=== PATIENT | female | born 1985 | race Caucasian/White ===

== ENCOUNTER 2018-02-16 13:44 | Emergency (ER) | payer OTHER ==
[~2018-02-16] VITALS: Ht 177.8 cm; Wt 91.6 kg
[~2018-02-16 13:44] MED LIST: BACTRIM DS TAB1 EACH PO; BENTYL10 M1 PO; BUPROPION HCL150 M4 PO; CELEXA40 M1 PO; CLONAZEPAM1 M2 PO; CORTEF20 M1 PO; CYANOCOBAL1000 MCG/2 IM; CYCLOBENZAPRINE5 M2 PO; DILAUDID2 M1 PO; FENTANYL1 EAC5 TOP; FLUDROCORTISON0.1 M1 PO; HYDROCORTISONE20 M1 PO; LOPRESSOR50 M1 PO; MAALOX MAXIMUM355 ML PO; MIDODRINE HCL5 M1 PO; OXYCODONE HCL5 M1 PO; PANTOPRAZOLE SO20 M1 PO; PEPCID20 M1 PO; POTASSIUM CHLO20 ME2 PO; REGLAN10 M1 PO; ZOFRAN ODT4 M1 SL; ZOFRAN4 M2 PO
--- NOTE | 2018-02-16 14:45 | RADIOLOGY REPORT ---
EXAMINATION: XR KNEE, RIGHT CLINICAL INFORMATION: Pain, fracture COMPARISON: None TECHNIQUE: Four views of the right knee. FINDINGS: Bones and soft tissues are normal. No acute fracture or joint effusion. Alignment is anatomic. No abnormal soft tissue calcification. IMPRESSION: No acute fracture or dislocation of the right knee.
--- NOTE | 2018-02-16 16:08 | ED UPPER/LOWER EXTREMITY COMPL ---
History of Present Illness General Chief Complaint: Lower Extremity Problems Stated Complaint: R KNEE PAIN Source: patient, old records Exam Limitations: no limitations Vital Signs & Intake/Output Vital Signs & Intake/Output Vital Signs Date Time Temp Pulse Resp B/P B/P Pulse O2 O2 Flow FiO2 Mean Ox Delivery Rate 02/16 1654 68 18 128/58 99 Room Air 02/16 1400 99.0 59 20 114/79 97 Room Air Allergies Coded Allergies: metronidazole (Severe, ANAPHYLAXIS 03/30/16) morphine (Severe, ITCHING 07/17/17) ciprofloxacin (From CIPRO) (UNKNOWN 07/17/17) dexamethasone (KANDIS DANLOS SYNDROME - CONTRAINDICATION 03/30/16) ketorolac (From TORADOL) (UNKNOWN 07/17/17) levofloxacin (From LEVAQUIN) (UNKNOWN 07/17/17) Reconcile Medications Bupropion HCl (Bupropion HCl Sr) 150 MG TABLET.ER 1 TAB PO BID MENTAL HEALTH (Reported) Citalopram Hydrobromide (Celexa) 40 MG TABLET 1 TAB PO DAILY MENTAL HEALTH ( Reported) Cyanocobalamin (Vitamin B-12) (Cyanocobalamin Injection) 1,000 MCG/ML VIAL 1 ML IM Q30D VITAMIN SUPPORT (Reported) Dicyclomine Hydrochloride (Bentyl) 10 MG CAPSULE 1 CAP PO TID PRN abdominal cramps Famotidine (Pepcid) 20 MG TABLET 1 TAB PO BID gastritis Fludrocortisone Acetate 0.1 MG TABLET 1 TAB PO DAILY ADRENAL INSUFF (Reported ) Hydrocortisone 20 MG TABLET 1 TAB PO BID ADRENAL INSUFFICIENCY Mag Hydrox/Al Hydrox/Simeth (Maalox Maximum Strength Susp) 400 MG-400 MG-40 MG/5 ML ORAL.SUSP 10-15 ML PO Q4P PRN abdominal pain Metoprolol Tartrate (Lopressor) 50 MG TABLET 1.5 TAB PO BID HEART (Reported) Midodrine HCl 5 MG TABLET 1 TAB PO TID BP (Reported) Ondansetron (Zofran Odt) 4 MG TAB.RAPDIS 1 TAB SL TID PRN NAUSEA Ondansetron (Zofran Odt) 4 MG TAB.RAPDIS 1 TAB SL TID PRN nausea Oxycodone HCl 5 MG TABLET 1-2 TAB PO Q6P PRN severe pain Oxycodone HCl/Acetaminophen (Percocet 5-325 MG Tablet) 5 MG-325 MG TABLET 1 TAB PO BID PRN pain Pantoprazole Sodium 20 MG TABLET. 1 TAB PO DAILY ACID REFLUX (Reported) Sulfamethoxazole/Trimethoprim (Bactrim Ds Tablet) 800 MG-160 MG TABLET 1 TAB PO BID PYELO Triage Note: PT STATES SHE THINKS SHE DISLOCATED HER RIGHT KNEE YESTERDAY WHILE STANDING. STATES SHE HEARD THE POP AND FELT PAIN GOING DOWN LEG.STATES HER ADDISONS SEEMS TO BE ACTING UP Triage Nurses Notes Reviewed? yes Onset: Abrupt : No Patient currently breastfeeds: No HPI: 32-year-old female with history of Kandis danos syndrome, addisons presents to the ER complaining of right anterior knee pain. She states she was standing yesterday when she believes she dislocated her kneecap. She states this is happened before there was no fall or trauma she denies any other injury. She states she was taking oxycodone at home without improvement and feels like her leg will give out secondary to her pain. No swelling numbness or tingling pain is worse with weightbearing and better with rest Past History Travel History Traveled to [place] past 21 day No Medical History Any Pertinent Medical History? 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 No Review of Systems Review of Systems Constitutional: Reports: see HPI. Comments Review of systems: See HPI, All other systems negative. Constitutional, no chills no fever HEENT: no sore throat no congestion Cardiovascular: No chest pain Skin: no rashes, no change in skin Respiratory: No dyspnea no cough GI: No nausea no vomiting Muscle skeletal: See HPI Neurologic: , no headache Heme/endocrine: No bruising Physical Exam Physical Exam General Appearance: well developed/nourished, alert, awake Comments: Well-developed well-nourished patient in no apparent distress. HEENT: Atraumatic, extraocular motion intact Neck: Supple, FROM Back: FROM Respiratory: No respiratory distress. Patient speaking in full complete sentences. Upper Extremities: full range of motion Hip/Pelvis: Atraumatic/Stable. FROM. Knee: Atraumatic/stable. lROM secondary to pain. No joint swelling, no ecchymosis, no effusion. No laxity. Negative keith/anterior drawer test. No pain with ROM Leg: Atraumatic. Nontender. No edema, 5 out of 5 strength in the lower extremity, normal dorsiflexion of great toe bilaterally, gross sensation is intact, patellar tendon reflex 2+ bilaterally. Ankle/Foot: Atraumatic/stable. Skin intact. FROM. No swelling, no effusion. No laxity on exam Pulses: Normal/equal DP/PT pulses bilaterally. Brisk cap refill Neuro: awake, alert, and oriented to person, place and time. There were no obvious focal neurologic abnormalities. Skin: Warm & dry;No appreciable rash on exposed skin Psych: Mood affect normal, normal memory normal judgment. Progress Differential Diagnosis: contusion, dislocation, fracture, sprain, tendon injury Plan of Care: Orders Procedure Date/time Status Durable Medical Equipment 02/16 162 Active I discussed with the patient at length all of their results. I had an extensive conversation regarding need for close follow up with their primary care physician this week as well as return precautions. I answered all of their questions, they feel comfortable with the plan and follow-up care. I discussed with the patient/family the medications that they will receive. I gave them signs and symptoms that could indicate an adverse reaction. I have advised them to limit their activities until they can see how they respond to the medication. Diagnostic Imaging: Viewed by Me: Radiology Read. Discussed w/RAD: Radiology Read. Radiology Impression: PATIENT: SHAI HARTMANN PRESENT AGE: 32 PATIENT ACCOUNT NO: [id number] : 87 LOCATION: [facility] ORDERING PHYSICIAN: Taran COLÓN SERVICE DATE: 02/16/18-0593 EXAM TYPE: RAD - XRY-KNEE COMPLETE RIGHT EXAMINATION: XR KNEE, RIGHT CLINICAL INFORMATION: Pain, fracture COMPARISON: None TECHNIQUE: Four views of the right knee. FINDINGS: Bones and soft tissues are normal. No acute fracture or joint effusion. Alignment is anatomic. No abnormal soft tissue calcification. IMPRESSION: No acute fracture or dislocation of the right knee. DICTATED BY: Gary Duncan MD DATE/TIME DICTATED:02/16/181439 MANAGER VOICE:WENDY DATE/TIME TRANSCRIBED:02/16/181439 CONFIDENTIAL, DO NOT COPY WITHOUT APPROPRIATE AUTHORIZATION. <Electronically signed in Other Vendor System> SIGNED BY: Gary Duncan MD 02/16/181444 Departure Departure Time of Disposition: 0 Disposition: HOME OR SELF CARE Condition: Stable Clinical Impression Primary Impression: Knee sprain Referrals: Michael WAGNER,Latasha Smith APRN,Danielle Long (PCP/Family) Additional Instructions: Rest ice leg immobilizer at all times. Follow-up with orthopedist Dr. Rodriguez. Percocet for breakthrough pain use caution as this is a narcotic and highly addictive no driving or drinking alcohol while taking.- Departure Forms: Customer Survey General Discharge Information Prescriptions: Current Visit Scripts Oxycodone HCl/Acetaminophen (Percocet 5-325 MG Tablet) 1 TAB PO BID PRN pain #10 TAB
[2018-02-16] MEDS ORDERED: PERCOCET 5-3251 EACH PO (16:24)
[2018-02-16 16:54] VITALS: BP 128/58
== END 2018-02-16 16:55 ==
LOC: ERH 13:44
DX: S83.91XA Sprain of unspecified site of right knee, initial encounter (principal); X58.XXXA Exposure to other specified factors, initial encounter; Y92.9 Unspecified place or not applicable; Y93.9 Activity, unspecified
CPT/HCPCS: 73562-RT; 96372; J1200

== ENCOUNTER 2018-06-12 17:28 | Inpatient (IN) | payer OTHER ==
[~2018-06-12] VITALS: Ht 177.8 cm; Wt 99.1 kg
[~2018-06-12 17:28] MED LIST changes: +PERCOCET 5-3251 EACH PO; +SKELAXIN800 M1 PO
[2018-06-12] MEDS ORDERED: WELLBUTRIN XL300 M2 PO (17:58)
[2018-06-12] MEDS ORDERED: PANTOPRAZOLE SO40 M1 PO (17:59)
[2018-06-12] MEDS ORDERED: DICYCLOMINE HCL10 M1 PO (17:59)
[2018-06-12] MEDS ORDERED: CORTEF20 M1 PO (18:01)
[2018-06-12] MEDS ORDERED: LOPRESSOR100 M1 PO (18:02)
[2018-06-12] MEDS ORDERED: CORTEF10 M1 PO (18:02)
[2018-06-12] MEDS ORDERED: REGLAN10 M1 PO (18:03)
--- NOTE | 2018-06-12 18:03 | ED GENERAL ADULT ---
See Addendum History of Present Illness General Chief Complaint: General Adult Stated Complaint: ?PNEMONIA Source: patient Exam Limitations: no limitations Vital Signs & Intake/Output Vital Signs & Intake/Output Vital Signs Date Time Temp Pulse Resp B/P B/P Pulse O2 O2 Flow FiO2 Mean Ox Delivery Rate 06/12 1738 99.3 80 22 134/79 97 Room Air Allergies Coded Allergies: metronidazole (Severe, ANAPHYLAXIS 03/30/16) morphine (Severe, ITCHING 07/17/17) ciprofloxacin (From CIPRO) (PER PT CANT HAVE DUE TO CONNECTIVE TISSUE DISORDER 06/12/18) dexamethasone (SLADE DANLOS SYNDROME - CONTRAINDICATION 03/30/16) ketorolac (From TORADOL) (UNKNOWN 07/17/17) levofloxacin (From LEVAQUIN) (PER PT CANT HAVE DUE TO CONNECTIVE TISSUE DISORDER 06/12/18) Reconcile Medications Bupropion HCl (Wellbutrin XL) 300 MG TAB.ER.24H 1 TAB PO QAM DEPRESSION ( Reported) Clonazepam 1 MG TABLET 1 TAB PO TIDPRN PRN ANXIETY (Reported) Cyanocobalamin (Vitamin B-12) (Cyanocobalamin Injection) 1,000 MCG/ML VIAL 1 ML IM Q30D VITAMIN SUPPORT (Reported) Dicyclomine HCl 10 MG CAPSULE 1 CAP PO TID PRN ABD CRAMPS (Reported) Etonogestrel (Nexplanon) 68 MG IMPLANT RIGHT ARM - CONTROL (Reported) Fludrocortisone Acetate 0.1 MG TABLET 1 TAB PO DAILY ADRENAL INSUFF (Reported ) Fluticasone Propionate 50 MCG/ACTUATION SPRAY.SUSP 2 SPRAY NASB DAILY ALLERGIES (Reported) Hydrocortisone (Cortef) 20 MG TABLET 1 TAB PO QAM ADRENAL INSUFF (Reported) Hydrocortisone (Cortef) 10 MG TABLET 1 TAB PO 1200 ADRENAL INSUFF (Reported) Metoclopramide HCl (Reglan) 10 MG TABLET 1 TAB PO TID NAUSEA (Reported) 30 minutes before meals and bedtime Metoprolol Tartrate (Lopressor) 100 MG TABLET 1 TAB PO BID HEART (Reported) Midodrine HCl 5 MG TABLET 1 TAB PO TID BP (Reported) Oxycodone HCl 15 MG TABLET 1 TAB PO 4XDP PRN PAIN (Reported) Pantoprazole Sodium 40 MG TABLET.DR 1 TAB PO DAILY GI (Reported) Triage Note: 33F HAD CXR DONE TODAY WHICH SHOWED RUL PNA, WITH 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 HAS ADDISONS DISEASE AND IS ON CHRONIC STEROIDS. WAS SENT IN FOR IV ANTIBIOTICS AND STEROIDS. TAKING ADVIL Triage Nurses Notes Reviewed? yes Onset: Gradual Duration: day(s): Timing: recent history : No Patient currently breastfeeds: No HPI: 33 year old female presents to the Emergency Department after a chest xray showed PNA. Past medical history of postprandial syndrome and Florence's disease. She also has a past medical history of polycystic ovary disease. Past History Travel History Traveled to [place] past 21 day No Medical History Any Pertinent Medical History? 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 No Review of Systems Review of Systems Constitutional: Reports: see HPI. Denies: diaphoresis, fever. EENTM: Reports: no symptoms. Denies: double vision, visual changes. Respiratory: Reports: see HPI, cough, short of breath. Cardiovascular: Reports: see HPI, chest pain. GI: Reports: no symptoms. Genitourinary: Reports: no symptoms. Musculoskeletal: Reports: no symptoms. Skin: Reports: no symptoms. Neurological/Psychological: Reports: no symptoms. Hematologic/Endocrine: Reports: no symptoms. Immunologic/Allergic: Reports: no symptoms. All Other Systems: Reviewed and Negative Physical Exam Physical Exam General Appearance: well developed/nourished, alert, awake, anxious, mild distress Head: atraumatic, normal appearance Eyes: Bilateral: normal appearance, PERRL, EOMI. Ears, Nose, Throat: normal pharynx, normal ENT inspection Neck: normal inspection, supple, full range of motion Respiratory: normal breath sounds, chest non-tender, no respiratory distress Cardiovascular: regular rate/rhythm Peripheral Pulses: 4+ radial (R), 4+ radial (L) Gastrointestinal: soft, non-tender Back: normal range of motion Extremities: no edema Neurologic/Psych: no motor/sensory deficits, awake, alert, oriented x 3 Skin: intact, normal color, warm/dry Core Measures ACS in differential dx? No CVA/TIA Diagnosis: No Sepsis Present: No Sepsis Focused Exam Completed? No Progress Differential Diagnoses I considered the following diagnoses in my evaluation of the patient: [Pneumonia , sepsis, pulmonary embolism,] Plan of Care: Orders Procedure Date/time Status CTA CHEST-PULMONARY EMBOLISM 06/12 2048 Active TROPONIN LEVEL 06/12 184 Complete D-DIMER 06/12 1819 Complete EKG 06/12 1819 Active LACTIC ACID 06/12 1740 Complete HUMAN BETA HCG SCREEN 06/12 1740 Complete COMPREHENSIVE METABOLIC PANEL 06/12 1740 Complete CBC WITHOUT DIFFERENTIAL 06/12 1740 Complete Current Medications Sig/Silas Start time Last Medication Dose Stop Time Status Admin Sodium Chloride 1,000 ML BOLUS ONE 06/12 1945 AC 06/12 (Normal Saline 0.9%) 06/12 Laboratory Tests 06/12/182039: Lactic Acid Cancelled 06/12/181847: Anion Gap 9, Estimated GFR > 60, BUN/Creatinine Ratio 22.0, Glucose 87, Lactic Acid 0.6 L, Calcium 8.4, Total Bilirubin < 0.1 L, AST 14, ALT 23, Alkaline Phosphatase 57, Troponin I < 0.01, Total Protein 5.8 L, Albumin 3.1 L, Globulin 2.7, Albumin/Globulin Ratio 1.1, Total Beta HCG NEGATIVE, D-Dimer High Sensitivty 335 H, CBC w Diff NO MAN DIFF REQ, RBC 3.75 L, MCV 85.7, MCH 28.6, MCHC 33.4, RDW 13.9, MPV 7.5, Gran % 70.8, Lymphocytes % 21.0, Monocytes % 7.1, Eosinophils % 0.9, Basophils % 0.2, Absolute Granulocytes 9.6 H, Absolute Lymphocytes 2.9, Absolute Monocytes 1.0 H, Absolute Eosinophils 0.1, Absolute Basophils 0 06/12/181818: Troponin I Cancelled Initial ED EKG: normal sinus rhythm, PENDING Departure Departure Disposition: STILL A PATIENT Condition: Stable Clinical Impression Primary Impression: Pneumonia Referrals: Unknown (PCP/Family) Departure Forms: Customer Survey General Discharge Information Critical Care Note Critical Care Note Critical Care Time: non-applicable Departure Forms: Customer Survey General Discharge Information Critical Care Note Critical Care Note Critical Care Time: non-applicable
[2018-06-12] MEDS ORDERED: OXYCODONE HCL15 M1 PO (18:04)
[2018-06-12] MEDS ORDERED: NEXPLANON68 M1 (18:04)
[2018-06-12] MEDS ORDERED: CLONAZEPAM1 M2 PO (18:04)
[2018-06-12] MEDS ORDERED: FLUTICASONE PRO16 GM NASB (18:05)
[2018-06-12 19:03] LABS: ABSOLUTE BASOPHIL COUNT 0 /CUMM (0.0-0.2); ABSOLUTE EOSINOPHIL COUNT 0.1 /CUMM (0.0-0.7); ABSOLUTE GRANULOCYTE CT 9.6 /CUMM (1.4-6.5); ABSOLUTE LYMPH COUNT 2.9 /CUMM (1.2-3.4); BASOPHIL % 0.2 % (0.0-2.0); EOSINOPHIL % 0.9 % (0-5); HEMATOCRIT 32.1 % (37-47); MEAN CORPUSCULAR HGB 28.6 PG (27.0-31.0); MEAN CORPUSCULAR HGB CONC 33.4 G/DL (33.0-37.0); MEAN CORPUSCULAR VOLUME 85.7 FL (81.0-99.0); MEAN PLATELET VOLUME 7.5 FL (7.4-10.4); PLATELET COUNT 423 /CUMM (130-400); RBC DISTRIBUTION WIDTH 13.9 % (11.5-14.5); RED BLOOD CELL CT 3.75 /CUMM (4.20-5.40); WHITE BLOOD CELL COUNT 13.6 /CUMM (4.8-10.8)
[2018-06-12 19:09] LABS: GRANULOCYTE % 70.8 % (42.2-75.2)
--- NOTE | 2018-06-12 20:03 | RADIOLOGY REPORT ---
EXAMINATION: CHEST 2 VIEWS CLINICAL INFORMATION: Cough, fever. COMPARISON: None. TECHNIQUE: PA and lateral views of the chest were obtained. FINDINGS: The cardiac silhouette is not enlarged. The mediastinal and hilar contours are unremarkable. There are neither pleural effusions nor pneumothoraces. There is multifocal airspace disease within the right upper lobe and left midlung. The osseous structures are unremarkable. IMPRESSION: Multifocal airspace disease concerning for pneumonia. Recommendation is for a followup chest series to be obtained following treatment and/or resolution of symptoms to assure resolution of this appearance.
--- NOTE | 2018-06-12 21:22 | History & Physical ---
Johnny Calixto 06/12/182120: General Information and HPI MD Statement: I have seen and personally examined SHAI HARTMANN and documented this H&P. The patient is a 33 year old F who presented with a patient stated chief complaint of [nonproductive cough for 5 days]. Source of Information: patient, family Exam Limitations: no limitations History of Present Illness: The patient started having difficulty swallowing 5 days ago, accompanied by sore throat and generalized body pain, associated with short. Her boyfriend was sick with strep throat 2 days ago. Also 2 days ago, the patient went to urgent care because she started getting fevers up to 103. Chest x-ray which was done showed evidence of pneumonia. Patient was given doxycycline but continued to worsen. She continues to take Motrin for her fever. This morning she discussed with her PCP where she is advised to come to [facility] for further evaluation and management including IV antibiotics. Allergies/Medications Allergies: Coded Allergies: metronidazole (Severe, ANAPHYLAXIS 03/30/16) morphine (Severe, ITCHING 07/17/17) ciprofloxacin (From CIPRO) (PER PT CANT HAVE DUE TO CONNECTIVE TISSUE DISORDER 06/12/18) dexamethasone (KANDIS DANLOS SYNDROME - CONTRAINDICATION 03/30/16) ketorolac (From TORADOL) (UNKNOWN 07/17/17) levofloxacin (From LEVAQUIN) (PER PT CANT HAVE DUE TO CONNECTIVE TISSUE DISORDER 06/12/18) Compliance With Home Meds: GOOD Past History Travel History Traveled to [place] past 21 day No Medical History Neurological: NONE EENT: NONE Cardiovascular: AFIB, POTS TACHYCARDIA Respiratory: NONE Gastrointestinal: irritable bowel syndrome, upper GI bleed, GASTROPARESIS Hepatic: NONE Renal: POLYNEPHRITIS Musculoskeletal: KANDIS DANLOS SYNDROME HIP DYSPLASIA NECK FUSION HERNIATED DISKS Psychiatric: anxiety, depression Endocrine: ADDISIONS SYNDROME Blood Disorders: 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 Home Who Do You Live With? parent Primary Language: Palestinian Smoking Status: Unknown If Ever Smoked Living Will? no Review of Systems Review of Systems Constitutional: Reports: chills, diaphoresis, malaise. Denies: weakness, unexplained weight loss. EENTM: Reports: eye tearing, throat pain, throat swelling, mouth pain. Denies: blurred vision, double vision, visual changes, eye pain, eye drainage, icterus, ear discharge, ear pain, nasal congestion, nasal pain. Cardiovascular: Reports: see HPI. Respiratory: Reports: cough, orthopnea, short of breath. Denies: hemoptysis, sputum production, stridor. GI: Reports: no symptoms. Genitourinary: Reports: no symptoms. Musculoskeletal: Reports: see HPI, back pain, joint pain, muscle pain. Skin: Reports: no symptoms. Neurological/Psychological: Reports: anxiety, depressed, headache. Hematologic/Endocrine: Reports: no symptoms. Exam & Diagnostic Data Last 24 Hrs of Vital Signs/I&O Vital Signs Date Time Temp Pulse Resp B/P B/P Pulse O2 O2 Flow FiO2 Mean Ox Delivery Rate 06/12 2259 98.5 90 18 140/80 95 06/12 2243 97.5 78 18 127/64 95 06/12 1930 Room Air 06/12 1738 99.3 80 22 134/79 97 Room Air Physical Exam General Appearance Alert, Oriented X3, Cooperative, Mild Distress Skin No Rashes, No Breakdown Skin Temp/Moisture Exam: Warm/Dry HEENT Atraumatic, PERRLA, EOMI, membranes moist/pink; no herpetic outbreak; red punctate papilla on tongue Neck Supple, No JVD, No thryomegaly Lymphatic Axillary nl, Cervical nl Cardiovascular Regular Rate, Normal S1, Normal S2, No Murmurs Lungs diffuse wheezes,decreased air movement Abdomen Soft, No Tenderness, No Hepatospenomegaly Neurological Normal Speech, Strength at 5/5 X4 Ext, Normal Tone, Sensation Intact Extremities No Clubbing, No Cyanosis, No Edema Vascular Normal Pulses, Pulses Symmetrical Last 24 Hrs of Labs/Bakari: Laboratory Tests 06/12/182039: Lactic Acid Cancelled 06/12/181847: Anion Gap 9, Estimated GFR > 60, BUN/Creatinine Ratio 22.0, Glucose 87, Lactic Acid 0.6 L, Calcium 8.4, Total Bilirubin < 0.1 L, AST 14, ALT 23, Alkaline Phosphatase 57, Troponin I < 0.01, Total Protein 5.8 L, Albumin 3.1 L, Globulin 2.7, Albumin/Globulin Ratio 1.1, Total Beta HCG NEGATIVE, D-Dimer High Sensitivty 335 H, CBC w Diff NO MAN DIFF REQ, RBC 3.75 L, MCV 85.7, MCH 28.6, MCHC 33.4, RDW 13.9, MPV 7.5, Gran % 70.8, Lymphocytes % 21.0, Monocytes % 7.1, Eosinophils % 0.9, Basophils % 0.2, Absolute Granulocytes 9.6 H, Absolute Lymphocytes 2.9, Absolute Monocytes 1.0 H, Absolute Eosinophils 0.1, Absolute Basophils 0 06/12/181818: Troponin I Cancelled Microbiology 06/12 2141 BLOOD: Blood Culture - COLB 06/12 2140 URINE ROUT: Legionella Antigen - ORD 06/12 2140 URINE ROUT: Streptococcus pneumoniae Antigen (M - ORD 06/12 2140 LOWER RESP: Respiratory Culture - ORD 06/12 2140 LOWER RESP: Gram Stain - ORD 06/12 2140 BLOOD: Blood Culture - COLB Diagnostic Data CXR Results SERVICE DATE: 06/12/18 EXAM TYPE: RAD - XRY-CHEST XRAY, TWO VIEWS IMPRESSION: Multifocal airspace disease concerning for pneumonia. Recommendation is for a followup chest series to be obtained following treatment and/or resolution of symptoms to assure resolution of this appearance. Other Results SERVICE DATE: 06/12/18 EXAM TYPE: CAT - CTA CHEST-PULMONARY EMBOLISM IMPRESSION: No CT evidence for pulmonary embolism. Multifocal airspace disease groundglass opacification likely motor vehicle field representative of pneumonia. Trace bilateral pleural effusions. Nonspecific right paratracheal lymph node. Recommendation is for a followup chest series to be obtained following treatment and/or resolution of symptoms to assure resolution of this appearance. 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 Problem list/plan: Pneumonia Back pain post multiple surgeries Primary adrenal insufficiency department home dose of hydrocortisone -Consider endocrine consult Hypokalemia 3.5 Depression DVT prophylaxis: Lovenox Heart healthy diet Patient is full code As Ranked By This Provider Problem List: 1. Pneumonia 2. Kandis-Danlos syndrome 3. Adrenal insufficiency 4. Low back strain Core Measures/Misc (08/10) Acute Coronary Syndrome ACS Diagnosis: No Congestive Heart Failure Congestive Heart Failure Diagnosis No Cerebrovascular Accident CVA/TIA Diagnosis: No VTE (View Protocol) VTE Risk Factors Acute Medical Illness No Mechanical VTE Prophylaxis d/t Medical Contraindication (EDS) No VTE Pharm Prophylaxis d/t NA PharmProphylax ordered Sepsis (View protocol) Sepsis Present: No If YES complete Sepsis Event Note If YES complete Sepsis Event Note Rehan Ward MD 06/12/18 2133: Core Measures/Misc (08/10) Sepsis (View protocol) If YES complete Sepsis Event Note If YES complete Sepsis Event Note Resident Review Statement Resident Statement: examined this patient, discussed with pr internship, agreed with pr internship, discussed with family Other Findings: Patient is a 33-year-old female presented with chief complaints of nonproductive cough since last 5 days. According to the patient, she started having difficulty in swallowing, sore throat and generalized body since last 5 days, associated with shortness of breath. Her boyfriend was sick with the strep throat. 2 days ago. She went to the urgent care because she started getting high-grade fever with chills. Chest x-ray was done which showed evidence of pneumonia. She was started on doxycycline. Despite of this, she continued to worse and yesterday she had 103, temperature or which she took Motrin. In the morning she discuss with her PCP who advised for chest x-ray which showed bilateral right upper and left middle lobe pneumonia. She was advised to come to the [facility] for further evaluation and management including IV antibiotic. She recently started having palpitation and diagnosed as having atrial fibrillation. She is following security incident response engineer, Dr. Bettencourt. She underwent Holter monitoring recently. She had echocardiogram 2014, which was normal and will have follow-up echocardiogram 06/22/2018. 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 IBS History of gastroparesis, fundic gland polyp Pyelonephritis. History of hip dysplasia. Anxiety. Depression. PCOS Family history -father has diabetes, mother had history of thyroid cancer, great Grandmother has history of lymphoma. 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 Blood workup showed-WBC 13.6, hemoglobin 10.7, hematocrit 32.1, platelet count 423, granulocyte 70.8, sodium 143, progression 3.5, carbon dioxide 32, anion gap 9, BUN 11, creatinine 0.5, glucose 87, lactic acid 0.6, calcium 8.4, total bilirubin less than 0.1, troponin less than 0.01, albumin 3.1, d-dimer 335, Chest n-hpr-Ellncached airspace disease concerning for pneumonia. CT chest - No CT evidence for pulmonary embolism. Multifocal airspace disease groundglass opacification likely motor vehicle field representative of pneumonia. Trace bilateral pleural effusions. Nonspecific right paratracheal lymph node. Assessment and plan- Multilobar pneumonia- * Injection ceftriaxone 1 gram IV OD * Tablet azithromycin 500 milligrams OD for 5 days * Injection hydrocortisone 50 milligrams every BID * TRC/nebulization * We will avoid quinolones as they can cause muscle rupture. Patient has a history of tendon ruptures. Chronic back pain secondary to multiple surgeries - * Pain medication according to the pain scale. * Mild pain-ibuprofen as needed, moderate pain, Percocet as needed, severe pain, Dilaudid. History of adrenal insufficiency/Hiawatha's disease - * She was already given stress dose of steroid injection hydrocortisone 100 milligrams IV state. * We will continue injection hydrocortisone 50 milligrams IV twice a day for 1 day and followed by her home doses of hydrocortisone. * we will follow endocrinology consult Hypokalemia -3.5. * We will give injection potassium chloride 10 milliequivalents IV * Patient doesn't want to take oral potassium supplementation Depression- * She was recently started on amitriptyline 25 milligrams at nighttime. We will continue that. CODE STATUS-full code. DVT prophylaxis- Levonox Diet-heart healthy diet. INR. I think it can Neto WAGNER,Jin 06/13/18 0236: General Information and HPI MD Statement: I have seen and personally examined SHAI HARTMANN and documented this H&P. The patient is a 33 year old F who presented with a patient stated chief complaint of [PNA]. Source of Information: patient Exam Limitations: no limitations Allergies/Medications Home Med list Amitriptyline HCl 25 MG TABLET 1 TAB PO QPM DEPRESSION (Reported) Bupropion HCl (Wellbutrin XL) 300 MG TAB.ER.24H 1 TAB PO QAM DEPRESSION ( Reported) Clonazepam 1 MG TABLET 1 TAB PO TIDPRN PRN ANXIETY (Reported) Cyanocobalamin (Vitamin B-12) (Cyanocobalamin Injection) 1,000 MCG/ML VIAL 1 ML IM Q30D VITAMIN SUPPORT (Reported) Dicyclomine HCl 10 MG CAPSULE 1 CAP PO TID PRN ABD CRAMPS (Reported) Etonogestrel (Nexplanon) 68 MG IMPLANT RIGHT ARM - CONTROL (Reported) Fludrocortisone Acetate 0.1 MG TABLET 1 TAB PO DAILY ADRENAL INSUFF (Reported ) Fluticasone Propionate 50 MCG/ACTUATION SPRAY.SUSP 2 SPRAY NASB DAILY ALLERGIES (Reported) Hydrocortisone (Cortef) 20 MG TABLET 1 TAB PO QAM ADRENAL INSUFF (Reported) Hydrocortisone (Cortef) 10 MG TABLET 1 TAB PO 1200 ADRENAL INSUFF (Reported) Metoclopramide HCl (Reglan) 10 MG TABLET 1 TAB PO TID NAUSEA (Reported) 30 minutes before meals and bedtime Metoprolol Tartrate (Lopressor) 100 MG TABLET 1 TAB PO BID HEART (Reported) Midodrine HCl 5 MG TABLET 1 TAB PO TID BP (Reported) Oxycodone HCl 15 MG TABLET 1 TAB PO 4XDP PRN PAIN (Reported) Pantoprazole Sodium 40 MG TABLET.DR 1 TAB PO DAILY GI (Reported) Past History Medical History Cardiovascular: AFIB Gastrointestinal: irritable bowel syndrome, upper GI bleed, GASTROPARESIS Musculoskeletal: KANDIS DANLOS SYNDROME HIP DYSPLASIA NECK FUSION HERNIATED DISKS Psychiatric: anxiety, depression Endocrine: ADDISIONS SYNDROME Surgical History Surgical History: MULTIPLE ORTHOPEDIC SURGERIES CERVICAL SPINE FUSION Past Family/Social History Psychosocial History Smoking Status: Unknown If Ever Smoked ETOH Use: occasional use Illicit Drug Use: denies illicit drug use Review of Systems Review of Systems Constitutional: Reports: see HPI. Exam & Diagnostic Data Last 24 Hrs of Vital Signs/I&O Vital Signs Date Time Temp Pulse Resp B/P B/P Pulse O2 O2 Flow FiO2 Mean Ox Delivery Rate 06/13 0125 90 140/80 07/20 2259 98.5 90 18 140/80 95 06/12 2243 97.5 78 18 127/64 95 06/12 1930 Room Air 06/12 1738 99.3 80 22 134/79 97 Room Air Intake & Output 06/13 0800 06/13 0000 06/12 1600 Intake Total Output Total Balance Patient 202 lb Weight Weight Reported by Patient Measurement Method Physical Exam General Appearance Alert, Oriented X3, Cooperative, Mild Distress Skin No Rashes, No Breakdown Skin Temp/Moisture Exam: Warm/Dry HEENT Atraumatic, PERRLA, EOMI Neck Supple, No JVD, No thryomegaly Lymphatic Axillary nl, Cervical nl Cardiovascular Regular Rate, Normal S1, Normal S2, No Murmurs Lungs diffuse wheezes,decreased air movement Abdomen Normal Bowel Sounds, Soft, No Tenderness Neurological Normal Gait, Normal Speech Extremities No Clubbing, No Cyanosis, No Edema Vascular Normal Pulses Last 24 Hrs of Labs/Bakari: Laboratory Tests 06/12/182039: Lactic Acid Cancelled 06/12/18 1848: Anion Gap 9, Estimated GFR > 60, BUN/Creatinine Ratio 22.0, Glucose 87, Lactic Acid 0.6 L, Calcium 8.4, Total Bilirubin < 0.1 L, AST 14, ALT 23, Alkaline Phosphatase 57, Troponin I < 0.01, Total Protein 5.8 L, Albumin 3.1 L, Globulin 2.7, Albumin/Globulin Ratio 1.1, Total Beta HCG NEGATIVE, D-Dimer High Sensitivty 335 H, CBC w Diff NO MAN DIFF REQ, RBC 3.75 L, MCV 85.7, MCH 28.6, MCHC 33.4, RDW 13.9, MPV 7.5, Gran % 70.8, Lymphocytes % 21.0, Monocytes % 7.1, Eosinophils % 0.9, Basophils % 0.2, Absolute Granulocytes 9.6 H, Absolute Lymphocytes 2.9, Absolute Monocytes 1.0 H, Absolute Eosinophils 0.1, Absolute Basophils 0 06/12/18 181: Troponin I Cancelled Microbiology 06/12 2141 BLOOD: Blood Culture - COLB 06/12 2140 URINE ROUT: Legionella Antigen - ORD 06/12 2140 URINE ROUT: Streptococcus pneumoniae Antigen (M - ORD 06/12 2140 LOWER RESP: Respiratory Culture - ORD 06/12 2140 LOWER RESP: Gram Stain - ORD 06/12 2140 BLOOD: Blood Culture - COLB Core Measures/Misc (08/10) Sepsis (View protocol) If YES complete Sepsis Event Note If YES complete Sepsis Event Note Attending MD Review Statement Attending Statement Attending MD Statement: examined this patient, discuss w/resident/PA/LYE MACHINE OPERATOR, agreed w/resident/PA/LYE MACHINE OPERATOR, amended to note Attending Assessment/Plan: This patient is a 33-year-old white female with a significant past medical history for a Kandis-Danlos syndrome, Addisons disease and questionable atrial fibrillation. She presented with a chief complaints of nonproductive cough since last 5 days. According to the patient, she started having difficulty in swallowing, sore throat and generalized body since last 5 days, associated with shortness of breath. Her boyfriend was sick with the strep throat. 2 days ago. She went to the urgent care because she started getting high-grade fever with chills. Chest x-ray was done which showed evidence of pneumonia. She was started on doxycycline. Despite of this, she continued to worse and yesterday she had 103, temperature. In the morning she discuss with her PCP who advised for chest x-ray which showed bilateral right upper and left middle lobe pneumonia. She was told to come to the [facility] for further evaluation and management including IV antibiotic. Upon evaluation in the emergency department she was found to be afebrile with normal oxygenation. Her blood workup demonstrated a white blood cell count 13.6, lactic acid 0.6. The Chest x-ray showed a multifocal airspace disease concerning for pneumonia and the CT scan confirmed multifocal airspace disease groundglass opacification likely motor vehicle field representative of pneumonia. The patient was admitted for community-acquired pneumonia and started on ceftriaxone and azithromycin. She will stay on hydrocortisone for Addisons disease and may consider an endocrinology consult in the a.m.
--- NOTE | 2018-06-12 21:37 | CT SCAN REPORT ---
EXAMINATION: CT PULMONARY EMBOLISM STUDY CLINICAL INFORMATION: Elevated d-dimer. Shortness of breath. COMPARISON: Same day chest radiograph.. TECHNIQUE: Contiguous helical images of the chest were obtained following the administration of IV contrast. Multiplanar reconstructions were performed. MIPS were obtained and reviewed. DLP: 570 mGy-cm. CONTRAST: 95 mL of Optiray 320 were administered without incident. FINDINGS: The heart is of normal size. There is no pericardial effusion. The great vessels are unremarkable. Specifically, there is no pulmonary arterial filling defect. There is no CT evidence for pulmonary embolism. There is a superior right paratracheal lymph node on image 96/505 measuring 11 mm in short axis. There are no chest wall masses. Review of lung windows demonstrates that there are no pneumothoraces. There are trace bilateral pleural effusions. There is multifocal and groundglass opacification. There are no pulmonary parenchymal nodules. Limited evaluation of the upper abdomen demonstrates that the liver is of normal size and attenuation without focal lesions. Normal adrenal glands are identified. IMPRESSION: No CT evidence for pulmonary embolism. Multifocal airspace disease groundglass opacification likely floor representative of pneumonia. Trace bilateral pleural effusions. Nonspecific right paratracheal lymph node. Recommendation is for a followup chest series to be obtained following treatment and/or resolution of symptoms to assure resolution of this appearance.
[2018-06-12] MEDS ORDERED: AMITRIPTYLINE H25 M2 PO (22:36)
--- NOTE | 2018-06-12 22:58 | History & Physical ---
General Information and HPI Allergies/Medications Allergies: Coded Allergies: metronidazole (Severe, ANAPHYLAXIS 03/30/16) morphine (Severe, ITCHING 07/17/17) ciprofloxacin (From CIPRO) (PER PT CANT HAVE DUE TO CONNECTIVE TISSUE DISORDER 06/12/18) dexamethasone (SLADE DANLOS SYNDROME - CONTRAINDICATION 03/30/16) ketorolac (From TORADOL) (UNKNOWN 07/17/17) levofloxacin (From LEVAQUIN) (PER PT CANT HAVE DUE TO CONNECTIVE TISSUE DISORDER 06/12/18) Home Med list Amitriptyline HCl 25 MG TABLET 1 TAB PO QPM DEPRESSION (Reported) Bupropion HCl (Wellbutrin XL) 300 MG TAB.ER.24H 1 TAB PO QAM DEPRESSION ( Reported) Clonazepam 1 MG TABLET 1 TAB PO TIDPRN PRN ANXIETY (Reported) Cyanocobalamin (Vitamin B-12) (Cyanocobalamin Injection) 1,000 MCG/ML VIAL 1 ML IM Q30D VITAMIN SUPPORT (Reported) Dicyclomine HCl 10 MG CAPSULE 1 CAP PO TID PRN ABD CRAMPS (Reported) Etonogestrel (Nexplanon) 68 MG IMPLANT RIGHT ARM - CONTROL (Reported) Fludrocortisone Acetate 0.1 MG TABLET 1 TAB PO DAILY ADRENAL INSUFF (Reported ) Fluticasone Propionate 50 MCG/ACTUATION SPRAY.SUSP 2 SPRAY NASB DAILY ALLERGIES (Reported) Hydrocortisone (Cortef) 20 MG TABLET 1 TAB PO QAM ADRENAL INSUFF (Reported) Hydrocortisone (Cortef) 10 MG TABLET 1 TAB PO 1200 ADRENAL INSUFF (Reported) Metoclopramide HCl (Reglan) 10 MG TABLET 1 TAB PO TID NAUSEA (Reported) 30 minutes before meals and bedtime Metoprolol Tartrate (Lopressor) 100 MG TABLET 1 TAB PO BID HEART (Reported) Midodrine HCl 5 MG TABLET 1 TAB PO TID BP (Reported) Oxycodone HCl 15 MG TABLET 1 TAB PO 4XDP PRN PAIN (Reported) Pantoprazole Sodium 40 MG TABLET.DR 1 TAB PO DAILY GI (Reported) Past History Travel History Traveled to [place] past 21 day No Medical History Neurological: NONE EENT: NONE Cardiovascular: AFIB, POTS TACHYCARDIA Respiratory: NONE Gastrointestinal: irritable bowel syndrome, upper GI bleed, GASTROPARESIS Hepatic: NONE Renal: POLYNEPHRITIS Musculoskeletal: SLADE DANLOS SYNDROME HIP DYSPLASIA NECK FUSION HERNIATED DISKS Psychiatric: anxiety, depression Endocrine: ADDISIONS SYNDROME 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
[2018-06-12 22:59] VITALS: BP 140/80
[2018-06-13 05:37] VITALS: BP 118/60
--- NOTE | 2018-06-13 07:25 | PN- Housestaff ---
Johnny Calixto 06/13/18 0714: Subjective Follow-up For: Cough and probable pneumonia Complaints: pain scale (0-10) (continued chest pain) Subjective: Patient was seen and examined at the bedside. Patient states that she had a rough night, and was coughing quite a bit. States that physically she is essentially unchanged from the emergency department, but that the Robitussin may have helped a little bit. She states that she hope she will not be here in the hospital for too long. Review of Systems Constitutional: Reports: see HPI, chills, diaphoresis, fever. EENTM: Reports: throat pain, mouth pain. Denies: blurred vision, double vision, visual changes. Cardiovascular: Reports: palpitations. Respiratory: Reports: cough, short of breath. Gastrointestinal: Reports: no symptoms. Genitourinary: Reports: no symptoms. Musculoskeletal: Reports: joint pain, muscle pain. Skin: Reports: no symptoms. Neurological/Psychological: Reports: no symptoms. Hematologic/Endocrine: Reports: no symptoms. Objective Last 24 Hrs of Vital Signs/I&O Vital Signs Date Time Temp Pulse Resp B/P B/P Pulse O2 O2 Flow FiO2 Mean Ox Delivery Rate 06/13 0537 98.2 71 20 118/60 97 Room Air 06/13 0125 90 140/80 06/12 2259 98.5 90 18 140/80 95 06/12 2243 97.5 78 18 127/64 95 06/12 1930 Room Air 06/12 1738 99.3 80 22 134/79 97 Room Air Intake & Output 06/13 0800 06/13 0000 06/12 1600 Intake Total Output Total Balance Patient 217 lb 202 lb Weight Weight Bed scale Reported by Patient Measurement Method Physical Exam General Appearance: Alert (just waking up), Oriented X3, Cooperative, Mild Distress Skin: No Rashes, No Breakdown, No Significant Lesion Skin Temp/Moisture Exam: Warm/Dry HEENT: Atraumatic, PERRLA, EOMI, mucus membranes moist/pink; tongue still inflamed red Neck: Supple, No JVD, No thryomegaly Lymphatic: Axillary nl, Cervical nl Cardiovascular: Regular Rate, Normal S1, Normal S2, No Murmurs Lungs: decreased breath sounds diffusely, no crackles or wheezes Abdomen: Soft, No Tenderness, No Hepatospenomegaly Neurological: Normal Speech, Strength at 5/5 X4 Ext, Normal Tone, Sensation Intact Extremities: No Clubbing, No Cyanosis, No Edema Vascular: Normal Pulses, Pulses Symmetrical Current Medications: Current Medications Sig/Silas Start time Last Medication Dose Route Stop Time Status Admin Acetaminophen 650 MG Q6PRN PRN 06/12 231 AC PO Acetaminophen 650 MG Q6-PRN PRN 06/12 2145 DC PO Acetaminophen 975 MG ONCE ONE 06/12 1745 DC 06/12 PO 06/12 174 1751 Amitriptyline HCl 25 MG QPM 06/13 2100 AC PO Azithromycin 500 MG DAILY 06/13 09 AC PO Bupropion HCl 300 MG QAM 06/13 0900 AC PO Ceftriaxone Sodium 1,000 MG DAILY 06/13 900 AC IV Ceftriaxone Sodium 0 .STK-MED ONE 06/12 1955 DC .ROUTE Ceftriaxone Sodium 1,000 MG ONCE ONE 06/12 1945 DC 06/12 IV 06/12 Clonazepam 1 MG TIDPRN PRN 06/12 2245 AC 06/12 PO 06/19 224 235 Dicyclomine HCl 10 MG TID PRN 06/12 231 AC PO Enoxaparin Sodium 40 MG DAILY 06/13 0900 AC SC Fludrocortisone 100 MCG DAILY 06/13 09 AC Acetate PO Fluticasone 2 SPRAY DAILY 06/13 09 AC Propionate YANNI Guaifenesin 10 ML Q6 06/12 235 AC 06/13 PO 0642 Hydrocortisone 100 MG ONE ONE 06/12 1945 DC 06/12 Sodium Succinate IV 06/12 Hydromorphone HCl 2 MG Q6P PRN 06/12 2315 AC PO Lidocaine 1 PAT Q24 06/12 2315 AC 06/13 TOP 0126 Metoclopramide HCl 10 MG TID 06/12 2237 AC 06/13 PO 0126 Metoprolol Tartrate 100 MG BID 06/12 2233 AC 06/13 PO 0125 Midodrine 5 MG 0800,1200,1600 06/13 08 AC PO Omeprazole 40 MG DAILY AC 06/13 07 AC 06/13 PO 0642 Oxycodone/ 1 TAB Q6P PRN 06/12 2230 AC 06/13 Acetaminophen PO 0642 Potassium Chloride 20 MEQ BID 06/13 0900 AC PO Potassium Chloride 10 MEQ ONCE ONE 06/12 2315 DC 06/13 IV 06/12 231 0124 Sodium Chloride 1,000 ML BOLUS ONE 06/12 1945 DC 06/12 IV 06/12 Last 24 Hrs of Lab/Bakari Results Last 24 Hrs of Labs/Mics: Laboratory Tests 06/12/182039: Lactic Acid Cancelled 06/12/18 1848: Anion Gap 9, Estimated GFR > 60, BUN/Creatinine Ratio 22.0, Glucose 87, Lactic Acid 0.6 L, Calcium 8.4, Total Bilirubin < 0.1 L, AST 14, ALT 23, Alkaline Phosphatase 57, Troponin I < 0.01, Total Protein 5.8 L, Albumin 3.1 L, Globulin 2.7, Albumin/Globulin Ratio 1.1, Total Beta HCG NEGATIVE, D-Dimer High Sensitivty 335 H, CBC w Diff NO MAN DIFF REQ, RBC 3.75 L, MCV 85.7, MCH 28.6, MCHC 33.4, RDW 13.9, MPV 7.5, Gran % 70.8, Lymphocytes % 21.0, Monocytes % 7.1, Eosinophils % 0.9, Basophils % 0.2, Absolute Granulocytes 9.6 H, Absolute Lymphocytes 2.9, Absolute Monocytes 1.0 H, Absolute Eosinophils 0.1, Absolute Basophils 0 06/12/181818: Troponin I Cancelled Microbiology 06/12 2141 BLOOD: Blood Culture - COLB 06/12 2140 URINE ROUT: Legionella Antigen - COLB 06/12 2140 URINE ROUT: Streptococcus pneumoniae Antigen (M - COLB 06/12 2140 LOWER RESP: Respiratory Culture - COLB 06/12 2140 LOWER RESP: Gram Stain - COLB 06/12 2140 BLOOD: Blood Culture - COLB Assessment/Plan Assessment: Patient is a 33-year-old female with past medical history of Ehler Danlos syndrome, 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 Problem list/plan: Pneumonia Back pain post multiple surgeries Primary adrenal insufficiency department home dose of hydrocortisone -Consider endocrine consult Hypokalemia 3.5 Depression DVT prophylaxis: Lovenox Heart healthy diet Patient is full code Problem List: 1. Pneumonia 2. Kandis-Danlos syndrome 3. Adrenal insufficiency 4. Low back strain Pain Ratin Pain Location: chest Pain Goal: pain free Pain Plan: Pain 1-3 ibuprofen, pain 4-6 Percocet, pain 7-10 Dilaudid Tomorrow's Labs & Rationales: AWAITING today's CBC/bep pending results, repeat tomorrow Myron WAGNER,Amir 06/13/18 0946: Attending MD Review Statement Attending Statement Attending MD Statement: examined this patient, discuss w/resident/PA/TRAFFIC II MANAGER, agreed w/resident/PA/TRAFFIC II MANAGER, reviewed EMR data (avail), discussed with nursing Attending Assessment/Plan: Ms. Ramos was seen and evaluated. Chart reviewed. Currentl reports sl improvement in her cough, sore throat. Denies f/c/n/v. Tolerating IV abx VSS --cont IV abx --f/u Bld C&S --cont other meds as indicated --rest of the plan as per resident's note
--- NOTE | 2018-06-13 07:44 | Patient Discharge Instructions ---
Discharge Instructions General Discharge Information Special Instructions: - Please follow up with your primary care physician within 1-2 weeks of discharge. Inform your primary care physician of this admission to [facility]. - Continue your current medications per discharge instructions. - Please watch for these problems: Fever, Chills, Nausea, Vomiting, Shortness of Breath, Productive Cough, Chest Pain/Discomfort, Abdominal Pain, Active Bleeding or Bloody urine/stool. Diet Continue normal diet: Yes Activity Full Activity/No Limits: Yes Acute Coronary Syndrome Inclusion Criteria At DC or during hospital stay patient has or had the following: ACS DIAGNOSIS No Discharge Core Measures Meds if any: Prescribed or Continued at Discharge Meds if any: NOT Prescribed or Continued at Discharge Congestive Heart Failure Inclusion Criteria At DC or during hospital stay patient has or had the following: CHF DIAGNOSIS No Discharge Core Measures Meds if any: Prescribed or Continued at Discharge Meds if any: NOT Prescribed or Continued at Discharge Cerebrovascular accident Inclusion Criteria At DC or during hospital stay patient has or had the following: CVA/TIA Diagnosis No Discharge Core Measures Meds if any: Prescribed or Continued at Discharge Meds if any: NOT Prescribed or Continued at Discharge Venous thromboembolism Inclusion Criteria VTE Diagnosis No VTE Type NONE VTE Confirmed by (Test) NONE Discharge Core Measures - Per Current guidelines, there needs to be overlap - treatment for the first 5 days of Warfarin therapy. - If discharged on Warfarin prior to 5 days of - overlap therapy, the patient will need to be - assessed for post discharge needs including - *Post discharge parental anticoagulation - *Warfarin and/or parental anticoagulation education - *Follow up date to check INR post discharge At least 5 days overlap therapy as Inpatient No Meds if any: Prescribed or Continued at Discharge Note: Overlap Therapy is Warfarin and Anticoagulant Meds if any: NOT Prescribed or Continued at Discharge
[2018-06-13 10:12] LABS: ABSOLUTE BASOPHIL COUNT 0 /CUMM (0.0-0.2); ABSOLUTE EOSINOPHIL COUNT 0.2 /CUMM (0.0-0.7); ABSOLUTE GRANULOCYTE CT 7.6 /CUMM (1.4-6.5); ABSOLUTE LYMPH COUNT 2.6 /CUMM (1.2-3.4); ABSOLUTE MONOCYTE COUNT 0.8 /CUMM (0.10-0.60); BASOPHIL % 0.3 % (0.0-2.0); EOSINOPHIL % 1.6 % (0-5); GRANULOCYTE % 67.6 % (42.2-75.2); HEMATOCRIT 32.5 % (37-47); MEAN CORPUSCULAR HGB CONC 32.6 G/DL (33.0-37.0); MEAN CORPUSCULAR VOLUME 85.9 FL (81.0-99.0); MEAN PLATELET VOLUME 7.6 FL (7.4-10.4); PLATELET COUNT 396 /CUMM (130-400); RBC DISTRIBUTION WIDTH 14.3 % (11.5-14.5); RED BLOOD CELL CT 3.79 /CUMM (4.20-5.40); WHITE BLOOD CELL COUNT 11.2 /CUMM (4.8-10.8)
[2018-06-13 14:19] VITALS: BP 118/60
[2018-06-13 22:31] VITALS: BP 126/68
[2018-06-14 06:54] VITALS: BP 118/62
--- NOTE | 2018-06-14 10:42 | PN- Att Addend ---
Attending Addendum Attending Brief Note No overnight issues, still with cough, however improving slowly. Eating well Vital Signs Date Time Temp Pulse Resp B/P B/P Pulse O2 O2 Flow FiO2 Mean Ox Delivery Rate 06/14 0843 98.4 75 18 118/62 06/14 0654 98.4 75 18 11862 96 Room Air 06/13 2231 98.6 70 18 126/68 97 06/13 2028 89 118/60 06/13 1419 98.3 89 20 118/60 97 Room Air 06/13 1258 Room Air Room Air Intake & Output 06/14 1600 06/14 0800 06/14 0000 Intake Total 450 Output Total Balance 450 Intake, Oral 450 Number 0 Bowel Movements Patient 99.082 kg Weight Weight Bed scale Measurement Method GEN: NAD HEENT: moist mucosa LUNGS: scattered rhonci HEART: s1s2 Labs/Diagnostics: reviewed A/P: Ms. Ramos was seen and evaluated. Tolerating IV abx --cont IV abx --add Lozenges for cough --f/u Bld C&S --cont other meds as indicated --rest of the plan as per resident's note
--- NOTE | 2018-06-14 11:28 | PN- Housestaff ---
Subjective Follow-up For: Pneumonia Subjective: Patient seen and examined at bedside. Pt states that she slept very well last night. Patient states that the first time she had some sleeping well. Patient states that she still does have a dry cough, nonproductive, although does say that there are no fevers going on. Patient states that she would like to go home tomorrow. Patient states that she does feel significantly improved since admission. Denies fevers/chills/night sweats/abdominal pain/urinary symptoms/ lower extremity edema Review of Systems Constitutional: Reports: see HPI. Objective Last 24 Hrs of Vital Signs/I&O Vital Signs Date Time Temp Pulse Resp B/P B/P Pulse O2 O2 Flow FiO2 Mean Ox Delivery Rate 06/14 1533 98.5 86 21 120/80 97 06/14 1206 99 Room Air Room Air 06/14 0843 98.4 75 18 118/62 06/14 0800 Room Air 06/14 0654 98.4 75 18 118/62 96 Room Air 06/13 2231 98.6 70 18 126/68 97 06/13 2028 89 118/60 Intake & Output 06/14 1600 06/14 0800 06/14 0000 Intake Total 400 450 Output Total 800 Balance -400 450 Intake, IV Intake, Oral 400 450 Number 0 Bowel Movements Output, Urine 800 Patient 218 lb Weight Weight Bed scale Measurement Method Physical Exam General Appearance: Alert, Oriented X3, Cooperative, No Acute Distress Skin: No Rashes Cardiovascular: Regular Rate, Normal S1, Normal S2 Lungs: Clear to Auscultation, Normal Air Movement Abdomen: Soft, No Tenderness Neurological: Sensation Intact Extremities: No Edema Current Medications: Current Medications Sig/Silas Start time Last Medication Dose Route Stop Time Status Admin Acetaminophen 650 MG Q6PRN PRN 06/12 2315 AC PO Amitriptyline HCl 25 MG QPM 06/13 2100 AC 06/13 PO 2029 Azithromycin 500 MG DAILY 06/13 09 AC 06/14 PO 0845 Benzocaine/Menthol 1 JERALD Q2P PRN 06/14 1015 AC 06/14 PO 1321 Benzonatate 100 MG TID 06/13 0928 AC 06/14 PO 1321 Bupropion HCl 300 MG QAM 06/13 09 AC 06/14 PO 0845 Ceftriaxone Sodium 1,000 MG DAILY 06/13 0900 AC 06/14 IV 0845 Clonazepam 1 MG TIDPRN PRN 06/12 2245 AC 06/14 PO 06/19 2244 1322 Dicyclomine HCl 10 MG TID PRN 06/12 2315 AC PO Enoxaparin Sodium 40 MG DAILY 06/13 0900 AC 06/14 SC 0844 Fludrocortisone 100 MCG DAILY 06/13 0900 AC 06/14 Acetate PO 0829 Fluticasone 2 SPRAY DAILY 06/13 09 AC 06/14 Propionate YANNI 0828 Guaifenesin 10 ML Q6 06/12 2359 AC 06/14 PO 1126 Hydrocortisone 10 MG 1800 06/14 1800 AC PO Hydrocortisone 20 MG DAILY 06/14 1015 AC 06/14 PO 1126 Hydromorphone HCl 2 MG Q6P PRN 06/12 2315 AC 06/14 PO 1251 Lidocaine 1 PAT Q24 06/12 2315 AC 06/14 TOP 0842 Metoclopramide HCl 10 MG TID 06/12 2237 AC 06/14 PO 1321 Metoprolol Tartrate 100 MG BID 06/12 2233 AC 06/14 PO 0843 Midodrine 5 MG 0800,1200,1600 06/13 0800 AC 06/14 PO 1126 Omeprazole 40 MG DAILY AC 06/13 07 AC 06/14 PO 0634 Oxycodone HCl 5 MG Q6P PRN 06/13 0930 AC 06/14 PO 1519 Potassium Chloride 20 MEQ BID 06/13 0900 AC 06/14 PO 0840 Assessment/Plan Assessment: Patient is a 33-year-old female with past medical history of Ehler Danlos syndrome, 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 Problem list/plan: #Pneumonia - resolving #Back pain post multiple surgeries #Primary adrenal insufficiency department home dose of hydrocortisone -Consider endocrine consult #Hypokalemia 3.9 yesterday, resolved #Depression DVT prophylaxis: Lovenox Heart healthy diet IV access Patient is full code Dispo Problem List: 1. Pneumonia Pain Ratin Pain Location: back Pain Goal: Pain 7 or less Pain Plan: pathway Tomorrow's Labs & Rationales: na
[2018-06-14 15:33] VITALS: BP 120/80
[2018-06-14 21:18] VITALS: BP 128/68
[2018-06-15 06:17] VITALS: BP 108/64
--- NOTE | 2018-06-15 06:59 | PN- Housestaff ---
Johnny Calixto 06/15/18 0658: Subjective Follow-up For: Multilobular pneumonia Complaints: no complaints Subjective: Patient seen and examined at bedside. Patient claims to have improved breathing and decreased chest pain. Patient plans to go home today, which is okay from a medical standpoint. Review of Systems Constitutional: Reports: no symptoms. Cardiovascular: Reports: no symptoms. Respiratory: Reports: see HPI. Gastrointestinal: Reports: no symptoms. Genitourinary: Reports: no symptoms. Musculoskeletal: Reports: see HPI. Objective Last 24 Hrs of Vital Signs/I&O Vital Signs Date Time Temp Pulse Resp B/P B/P Pulse O2 O2 Flow FiO2 Mean Ox Delivery Rate 06/15 0917 82 112/74 06/15 0800 Room Air 06/15 0617 98.3 69 20 108/64 97 Room Air 06/15 0000 Room Air 06/148 98.0 54 20 128/68 99 06/14 2035 95 Room Air 06/14 2031 98.5 86 21 120/80 06/14 1533 98.5 86 21 120/80 97 Intake & Output 06/15 1600 06/15 0800 06/15 0000 Intake Total 300 240 Output Total 400 Balance 300 -160 Intake, Oral 300 240 Output, Urine 400 Physical Exam General Appearance: Alert, Oriented X3, Cooperative, Mild Distress Skin: No Rashes, No Breakdown Skin Temp/Moisture Exam: Warm/Dry HEENT: Atraumatic, PERRLA, EOMI, Mucous Membr. moist/pink Neck: Supple, No JVD, No thryomegaly Lymphatic: Axillary nl, Cervical nl Cardiovascular: Regular Rate, Normal S1, Normal S2, No Murmurs Lungs: Clear to Auscultation, Normal Air Movement Abdomen: Normal Bowel Sounds, Soft, No Tenderness, No Hepatospenomegaly Neurological: Normal Gait, Normal Speech, Strength at 5/5 X4 Ext, Normal Tone, Sensation Intact Extremities: No Clubbing, No Cyanosis, No Edema Current Medications: Current Medications Sig/Silas Start time Last Medication Dose Route Stop Time Status Admin Acetaminophen 650 MG Q6PRN PRN 06/12 2315 DCD PO Albuterol Sulfate 3 ML Q4-PRN PRN 06/14 2045 DCD 06/14 INH 2032 Amitriptyline HCl 25 MG QPM 06/13 2100 DCD 06/14 PO 2033 Azithromycin 500 MG DAILY 06/13 0900 DCD 06/15 PO 0919 Benzocaine/Menthol 1 JERALD Q2P PRN 06/14 1015 DCD 06/15 PO 0932 Benzonatate 100 MG TID 06/13 0928 DCD 06/15 PO 0918 Bupropion HCl 300 MG QAM 06/13 0900 DCD 06/15 PO 0918 Ceftriaxone Sodium 1,000 MG DAILY 06/13 0900 DCD 06/15 IV 0910 Clonazepam 1 MG TIDPRN PRN 06/12 2245 DCD 06/15 PO 06/19 2244 0919 Dicyclomine HCl 10 MG TID PRN 06/12 2315 DCD PO Enoxaparin Sodium 40 MG DAILY 06/13 0900 DCD 06/15 SC 0924 Fludrocortisone 100 MCG DAILY 06/13 0900 DCD 06/15 Acetate PO 0919 Fluticasone 2 SPRAY DAILY 06/13 09 DCD 06/15 Propionate YANNI 0922 Guaifenesin 10 ML Q6 06/12 2359 DCD 06/15 PO 0544 Hydrocortisone 10 MG 1800 06/14 1800 DCD 06/14 PO 1702 Hydrocortisone 20 MG DAILY 06/14 1015 DCD 06/15 PO 0922 Hydromorphone HCl 2 MG Q6P PRN 06/12 2315 DCD 06/14 PO 1846 Lidocaine 1 PAT Q24 06/12 2315 DCD 06/15 TOP 0910 Metoclopramide HCl 10 MG TID 06/12 2237 DCD 06/15 PO 0918 Metoprolol Tartrate 100 MG BID 06/12 2233 DCD 06/15 PO 0917 Midodrine 5 MG 0800,1200,1600 06/13 0800 DCD 06/15 PO 0912 Omeprazole 40 MG DAILY AC 06/13 07 DCD 06/15 PO 0544 Oxycodone HCl 5 MG Q6P PRN 06/13 0930 DCD 06/15 PO 0920 Potassium Chloride 20 MEQ BID 06/13 0900 DCD 06/15 PO 0914 Assessment/Plan Assessment: Patient is a 33-year-old female with past medical history of Ehler Danlos syndrome, Estill's disease on chronic steroids, atrial fibrillation, IBS, history of gastroparesis, pyelonephritis, history of hip dysplasia, anxiety, depression, PCOS who presents with nonproductive cough lasting 5 days. Patient's pneumonia has resolved and she is ready for discharge today. Problem list/plan: #Pneumonia - resolving -Resolved, sending patient home with two additional days of antibiotics #Back pain post multiple surgeries #Primary adrenal insufficiency department home dose of hydrocortisone #Hypokalemia 3.9 yesterday, resolved #Depression DVT prophylaxis: Lovenox Heart healthy diet Patient is full code Problem List: 1. Pneumonia 2. Kandis-Danlos syndrome 3. Adrenal insufficiency 4. Low back strain Pain Ratin Pain Location: chest muscles Pain Goal: pain free Pain Plan: Pain 1-3 ibuprofen, pain 4-6 Percocet, pain 7-10 Dilaudid Tomorrow's Labs & Rationales: none, discharged Ashlie Villaseñor 06/15/18 1045: Attending MD Review Statement Attending Statement Attending MD Statement: examined this patient, discuss w/resident/PA/GRAPHIC EDITOR, agreed w/resident/PA/GRAPHIC EDITOR, discussed with family, reviewed EMR data (avail), discussed with nursing, discussed with case mgmt, reviewed images, amended to note Attending Assessment/Plan: Patient with primary adrenal insufficecny on steorids at home is admitted here for community acquired pneumonia. Patient is on iv antibiotics and that can be transitioned to Oral today. Blood cultures remain negative. Patient denies any new complaints today and she can be discharged in satisfactory condition to home. Follow up with PCP in 1 week of discharge.
[2018-06-15 09:17] VITALS: BP 112/74
[2018-06-15] MEDS ORDERED: KEFLEX750 M1 PO ×2 (10:06→11:16)
--- NOTE | 2018-06-15 15:12 | Discharge Summary ---
Hospital Course Allergies: Coded Allergies: metronidazole (Severe, ANAPHYLAXIS 03/30/16) morphine (Severe, ITCHING 07/17/17) ciprofloxacin (From CIPRO) (PER PT CANT HAVE DUE TO CONNECTIVE TISSUE DISORDER 06/12/18) dexamethasone (SLADE DANLOS SYNDROME - CONTRAINDICATION 03/30/16) ketorolac (From TORADOL) (UNKNOWN 07/17/17) levofloxacin (From LEVAQUIN) (PER PT CANT HAVE DUE TO CONNECTIVE TISSUE DISORDER 06/12/18) Discharge Instructions Medications at Discharge Discharge Medications: Continue taking these medications: Midodrine HCl (Midodrine HCl) 5 MG TABLET 1 Tablet ORAL THREE TIMES DAILY Comments: Last Taken: 06/15/18 Time: 9:18AM Fludrocortisone Acetate (Fludrocortisone Acetate) 0.1 MG TABLET 1 Tablet ORAL DAILY Comments: Last Taken: 06/15/18 Time: 9:18 Cyanocobalamin (Vitamin B-12) (Cyanocobalamin Injection) 1,000 MCG/ML VIAL 1 Milliliters INTRAMUSC ONCE A MONTH Qty = 3 Comments: DID NOT ADMINISTER IN HOSPITAL Bupropion HCl (Wellbutrin XL) 300 MG TAB.ER.24H 1 Tablet ORAL Every Morning Comments: Last Taken: 06/15/18 Time: 0915 Dicyclomine HCl (Dicyclomine HCl) 10 MG CAPSULE 1 Capsule ORAL THREE TIMES DAILY as needed for ABD CRAMPS Comments: DID NOT ADMINISTER IN HOSPITAL Pantoprazole Sodium (Pantoprazole Sodium) 40 MG TABLET.DR 1 Tablet ORAL DAILY Comments: Last Taken: 06/15/18 Time: 5:45AM Hydrocortisone (Cortef) 20 MG TABLET 1 Tablet ORAL Every Morning Comments: Last Taken: 06/15/18 Time: 9:18 Hydrocortisone (Cortef) 10 MG TABLET 1 Tablet ORAL 1200 Comments: Last Taken: 06/14/18 Time: 5PM Metoprolol Tartrate (Lopressor) 100 MG TABLET 1 Tablet ORAL TWICE DAILY Comments: Last Taken: 06/15/18 Time: 9:18 Metoclopramide HCl (Reglan) 10 MG TABLET 1 Tablet ORAL THREE TIMES DAILY Instructions: 30 minutes before meals and bedtime Comments: Last Taken: 06/15/18 Time: 0918 Oxycodone HCl (Oxycodone HCl) 15 MG TABLET 1 Tablet ORAL 4 times daily as needed as needed for PAIN Comments: 5MG ADMINISTERED Last Taken: 06/15/18 Time: 9:18AM Clonazepam (Clonazepam) 1 MG TABLET 1 Tablet ORAL THREE TIMES A DAY NEEDED as needed for ANXIETY Comments: Last Taken: 06/15/18 Time: 917 Etonogestrel (Nexplanon) 68 MG IMPLANT Comments: IN PLACE- DID NOT ADMINISTER Fluticasone Propionate (Fluticasone Propionate) 50 MCG/ACTUATION SPRAY.SUSP 2 [place] Both sides of nose DAILY Comments: Last Taken: 06/15/18 Time: 9:18AM Amitriptyline HCl (Amitriptyline HCl) 25 MG TABLET 1 Tablet ORAL Every night Qty = 30 Comments: Last Taken:06/14/18 Time: 8:30PM Start taking the following new medications: Cephalexin (Keflex) 750 MG CAPSULE 1 Capsule ORAL TWICE DAILY Qty = 4 No Refills Instructions: . Comments: IV ABX ADMINISTERED- DID NOT ADMINISTER IN HOPSITAL
== END 2018-06-15 11:38 | DRG 139 ==
LOC: ERH 17:28 → ERHI 21:18 → 2NA 21:18 → ENRESERV 21:58 → ENTRNSPT 22:25 → 2NA 22:41 → CMPTRNSPT 06-13 10:38 → 2NA 06-13 12:04 → ENPENDDIS 06-15 10:22 → 2NA 06-15 11:38
PROVIDERS: General Practice; Physician Assistant Medical
DX: J18.1 Lobar pneumonia, unspecified organism (principal); E27.1 Primary adrenocortical insufficiency; Q79.6 Ehlers-Danlos syndromes; I48.0 Paroxysmal atrial fibrillation; F32.9 Major depressive disorder, single episode, unspecified; K31.84 Gastroparesis; G89.29 Other chronic pain; M54.9 Dorsalgia, unspecified; Z88.1 Allergy status to other antibiotic agents; Z88.5 Allergy status to narcotic agent; Z88.8 Allergy status to other drugs, medicaments and biological substances; Z98.1 Arthrodesis status
CPT/HCPCS: 2NAP; 2NASP; 36592; 71046; 82436; 87040; 87070; 87449; 87450; 93005; 93010; 96374; 96375; J0456; J0696; J1650; J1720